=== PATIENT | female | born 1930 | race Caucasian/White ===

== ENCOUNTER 2018-09-21 18:01 | Emergency (ER) | payer MEDICARE, OTHER ==
[~2018-09-21] VITALS: Ht 160 cm; Wt 68.0 kg
--- NOTE | 2018-09-21 20:20 | Diagnostic Imaging Report ---
EXAMINATION: PA and lateral chest. INDICATION: Fall and confusion. COMPARISON: No comparison available. FINDINGS: There is marked enlargement of the cardiac silhouette. The pulmonary vascularity currently appears appropriate without evidence of congestive failure. There is no large effusion. There are chronic interstitial changes within the lungs with hyperinflation and flattened diaphragms. There is no pneumothorax. There are advanced atherosclerotic calcifications within the aortic arch. There are severe degenerative features present within the thoracic spine. There appears to be a lower thoracic compression deformity of uncertain age. IMPRESSION: 1. Severe enlargement of the cardiac silhouette without evidence of current congestive failure. 2. Chronic interstitial changes with air trapping and pulmonary hyperinflation. 3. Advanced atherosclerosis. 4. Advanced degenerative features throughout the thoracic spine with apparent lower thoracic compression deformity of uncertain age. Dictated by: Dictated on workstation # [id number]
--- NOTE | 2018-09-21 20:26 | Diagnostic Imaging Report ---
PROCEDURE: CT head and CT cervical spine without contrast. TECHNIQUE: Multiple contiguous axial images were obtained through the brain and cervical spine without the use of intravenous contrast. Sagittal and coronal reformations through the cervical spine were then performed. Auto Exposure Controls were utilized during the CT exam to meet ALARA standards for radiation dose reduction. INDICATION: Fall. Confusion. COMPARISON: No comparison available. FINDINGS: Age-related global volume loss is present. There are no CT findings of an acute intracranial abnormality. There is no evidence of intracranial hemorrhage. There is no mass effect or shift. There is no hydrocephalus. There are background chronic microvascular changes within the deep white matter but no territorial loss of hernandez-white differentiation to suggest acute ischemia by CT. Basilar cisterns are patent. The posterior fossa demonstrates no acute process. The mastoid air cells appear clear. No fluid levels within the paranasal sinuses. There is no calvarial fracture. Cervical spine demonstrates multilevel cervical degenerative disc disease and facet arthropathy, most advanced at C6-7. Craniocervical junction relationships are maintained. There is a normal relationship of the lateral masses of C1 and C2. The facets are normally aligned. There is no facet joint or disc space widening. The vertebral body heights appear maintained. There are no findings of an acute cervical spine fracture. There is no CT evidence of high-grade central canal stenosis. There appears to be mild narrowing of the central canal at C6-7. Lung apices demonstrate some right apical pleural-parenchymal scarring. There is no pneumothorax. There is no acute soft tissue abnormality evident within the neck. IMPRESSION: 1. Age-related global volume loss with background microvascular changes within the white matter. There are no CT findings of an acute intracranial abnormality or calvarial fracture. 2. Cervical degenerative disc disease and facet arthropathy, most advanced at C6-7. There are no findings of traumatic malalignment or acute cervical spine fracture. No high-grade canal stenosis evident. Dictated by: Dictated on workstation # [id number]
[2018-09-21 20:54] LABS: BASOPHILS % (AUTO) 0 % (0-10); EOSINOPHILS # (AUTO) 0.1 10^3/uL (0.0-0.3); EOSINOPHILS % (AUTO) 1 % (0-10); HEMATOCRIT 34 % (35-52); HEMOGLOBIN 12.3 G/DL (11.5-16.0); LYMPHOCYTES % (AUTO) 15 % (12-44); MEAN CORPUSCULAR HEMOGLOBIN 31 PG (25-34); MEAN CORPUSCULAR HGB CONC 32 G/DL (32-36); MEAN CORPUSCULAR VOLUME 95 FL (80-99); MEAN PLATELET VOLUME 11.2 FL (7.4-10.4); MONOCYTES # (AUTO) 0.5 X 10^3 (0.0-1.0); MONOCYTES % (AUTO) 8 % (0-12); NEUTROPHILS % (AUTO) 75 % (42-75); PLATELET COUNT 138 10^3/uL (130-400); RED CELL DISTRIBUTION WIDTH 13.8 % (10.0-14.5); WHITE BLOOD COUNT 6.7 10^3/uL (4.3-11.0)
[2018-09-21 20:58] LABS: BACTERIA,URINE LARGE /HPF; BILIRUBIN,URINE NEGATIVE (NEGATIVE); CLARITY,URINE CLOUDY; COLOR,URINE YELLOW; GLUCOSE, URINE (UA) NEGATIVE (NEGATIVE); KETONES,URINE NEGATIVE (NEGATIVE); LEUKOCYTE ESTERASE ,URINE NEGATIVE (NEGATIVE); NITRITE,URINE NEGATIVE (NEGATIVE); PH,URINE 7.5 (5-9); PROTEIN,URINE NEGATIVE (NEGATIVE); SQUAMOUS EPITHELIAL CELL,UR 0-2 /HPF; UROBILINOGEN,URINE 0.2 MG/DL (NORMAL); WBC,URINE 0-2 /HPF
[2018-09-21 21:17] LABS: CALCIUM 9.6 MG/DL (8.5-10.1); CREATININE SERUM 1.01 MG/DL (0.60-1.30); POTASSIUM 4.7 MMOL/L (3.6-5.0)
[2018-09-21 21:27] LABS: BAND NEUTROPHILS 1 %; BASOPHILS % (MANUAL) 0 %; EOSINOPHILS % (MANUAL) 1 %; LYMPHOCYTES % (MANUAL) 20 %; MONOCYTES % (MANUAL) 5 %; NEUTROPHILS % (MANUAL) 73 %; RBC MORPH NORMAL
[2018-09-21] MEDS ORDERED: CEPHALEXIN 250 MG (KEFLEX) CAP PO ONE (21:45)
[2018-09-21] MEDS ORDERED: ACETAMINOPHEN 500 MG TAB (TYLENOL) PO STA (21:45)
--- NOTE | 2018-09-21 21:49 | ED Trauma-Multisystem ---
General Chief Complaint: Trauma-Non Activation Stated Complaint: PT FELL AT HOME, SOB, RIB PAIN Nursing Triage Note: Pt arrived by private car with chief complaint of fall. Friend that brought pt stated she fell last night. Pt was not able to tell me what time, not able to tell me who the president is. She was able to identify where she was at. Pt stated it was december,. Pt's friend was asked if she has dementia or alzheimers and he stated sometimes she is confused. Pt does not know if she hit her head or if she takes blood thinners. Pt has abraision dime size to forehead and abraision of left posterior of thumb. Pt stated her chest hurt and she landed on her back. Source of Information: Patient, Family Exam Limitations: Other (Dementia ) History of Present Illness Date Seen by Provider: Sep 21, 2018 Time Seen by Provider: 19:30 Initial Comments This is a 87 yo f with some underlying dementia who presents for evaluation of fall. Pt presents with JEF who is at bedside and helps with history. Pt lives a lone. JEF states that they are working on moving her to an assisted living facility vs memory care unit vs with family. JEF checks on her daily. This afternoon she reported that she had fallen in the night. She states that she got up to the restroom and fell to the ground. Unable to describe any exact mechanism. Unsure of head injury. Denies any LOC or prolonged laying on the ground. Reported some rib pain to JEF who brought her to the ED. Indicates anterior diffuse rib pain with touch only. Unable to rank on scale of 1-10. Does not rate on a scale of 1-10. At baseline mental status per family at bedside. Ambulates with walker. Has baseline gait per family at bedside. Pt reports chronic left hip pain that is unchanged and has been ambulatory multiple times since fall. Allergies and Home Medications Allergies Coded Allergies: No Known Drug Allergies (Unverified , 09/21/18) Home Medications Cephalexin 500 Mg Tablet, 500 MG PO BID Prescribed by: MARIE ANDREWS on 09/21/18 1147 Patient Home Medication List Home Medication List Reviewed: Yes Review of Systems Review of Systems Constitutional: No no symptoms reported, No see HPI, No chills Eyes: No Symptoms Reported; Denies Blindness, Denies Blurred Vision, Denies Vision Changes Respiratory: No cough, No short of breath, No wheezing Cardiovascular: Denies Chest Pain, Denies Edema Gastrointestinal: No abdominal pain, No diarrhea, No nausea, No vomiting Musculoskeletal: joint pain; No muscle pain Skin: No rash Limited 2/2 Dementia All Other Systems Reviewed Negative Unless Noted: Yes (Negative excepted noted.) Past Ktbkrmw-Shxmsj-Mcejfd Hx Patient Social History Alcohol Use: Denies Use Recreational Drug Use: No Smoking Status: Never a Smoker 2nd Hand Smoke Exposure: No Recent Foreign Travel: No Contact w/Someone Who Travel: No Recent Infectious Disease Expo: No Recent Hopitalizations: No Physical Abuse: No Sexual Abuse: No Mistreated: No Fear: No Seasonal Allergies Seasonal Allergies: No Past Medical History Surgeries: Yes Tonsillectomy Respiratory: No Cardiac: Yes (SVT) Atrial Fibrillation Neurological: No Genitourinary: No Gastrointestinal: No Musculoskeletal: Yes (Osteoarthritis of left knee, contustion rt hip, right hip pain) Endocrine: No HEENT: No Cancer: No Psychosocial: No Integumentary: No Blood Disorders: No Physical Exam Vital Signs Vital Signs - First Documented Height, Weight, BMI Height: 5'3.00" Weight: 150lbs. 0oz. [id number]; BMI Method:Stated General Appearance: No Apparent Distress, Other (frail, appears stated age, sitting in wheelchair ) Head: No Evidence of Injury; No Contusions, No Ecchymosis, No Lacerations, No Swelling, No Tenderness Eyes: Bilateral Eye PERRL, Bilateral Eye EOMI Neck: Non Tender, Other (No midline spinal tenderness. Has some ?chronic decreased ROM but is not limited by pain. ) Cardiovascular: Regular Rate, Rhythm, No Edema, No Gallop, Normal Peripheral Pulses, Other (+1 pedal edema bilateral) Respiratory: Lungs Clear, Normal Breath Sounds, No Accessory Muscle Use, No Respiratory Distress Gastrointestinal: Normal Bowel Sounds, No Organomegaly Back: Other (No midline spinal tenderness in T through L spine. Mild tenderness to bilateral lateral chest wall. No overlying skin changes. No palpable crepitus or rib defects. ) Extremity: Normal Capillary Refill, Other (generalized weakness to bilateral LE that is 4/5 and equal to bilateral LE. Edema as above to ankles) Neurologic/Psychiatric: Alert, No Motor/Sensory Deficits, special forces specialist II-XII Norm as Tested, Other (Oriented to self/place, clear speech, conversant, pleasantly confused. ) Skin: Normal Color, Warm/Dry, Other (No areas of ecchymosis/bruising. ) Progress/Results/Core Measures Results/Orders Lab Results Laboratory Tests Test 09/21/18 20:16 09/21/18 20:32 Range/Units Urine Color YELLOW Urine Clarity CLOUDY Urine pH 7.5 5-9 Urine Specific [place] 1.015 L 1.016-1.022 Urine Protein NEGATIVE NEGATIVE Urine Glucose (UA) NEGATIVE NEGATIVE Urine Ketones NEGATIVE NEGATIVE Urine Nitrite NEGATIVE NEGATIVE Urine Bilirubin NEGATIVE NEGATIVE Urine Urobilinogen 0.2 NORMAL MG/DL Urine Leukocyte Esterase NEGATIVE NEGATIVE Urine RBC (Auto) NEGATIVE NEGATIVE Urine RBC NONE /HPF Urine WBC 0-2 /HPF Urine Squamous Epithelial Cells 0-2 /HPF Urine Crystals NONE /LPF Urine Bacteria LARGE H /HPF Urine Casts NONE /LPF Urine Mucus NEGATIVE /LPF Urine Culture Indicated YES White Blood Count 6.7 4.3-11.0 10^3/uL Red Blood Count 4.03 L 4.35-5.85 10^6/uL Hemoglobin 12.3 11.5-16.0 G/DL Hematocrit 34 L 35-52 % Mean Corpuscular Volume 95 80-99 FL Mean Corpuscular Hemoglobin 31 25-34 PG Mean Corpuscular Hemoglobin Concent 32 32-36 G/DL Red Cell Distribution Width 13.8 10.0-14.5 % Platelet Count 138 130-400 10^3/uL Mean Platelet Volume 11.2 H 7.4-10.4 FL Neutrophils (%) (Auto) 75 42-75 % Lymphocytes (%) (Auto) 15 12-44 % Monocytes (%) (Auto) 8 0-12 % Eosinophils (%) (Auto) 1 0-10 % Basophils (%) (Auto) 0 0-10 % Neutrophils # (Auto) 5.0 1.8-7.8 X 10^3 Lymphocytes # (Auto) 1.0 1.0-4.0 X 10^3 Monocytes # (Auto) 0.5 0.0-1.0 X 10^3 Eosinophils # (Auto) 0.1 0.0-0.3 10^3/uL Basophils # (Auto) 0.0 0.0-0.1 10^3/uL Neutrophils % (Manual) 73 % Lymphocytes % (Manual) 20 % Monocytes % (Manual) 5 % Eosinophils % (Manual) 1 % Basophils % (Manual) 0 % Band Neutrophils 1 % Blood Morphology Comment NORMAL Sodium Level 144 135-145 MMOL/L Potassium Level 4.7 3.6-5.0 MMOL/L Chloride Level 105 98-107 MMOL/L Carbon Dioxide Level 28 21-32 MMOL/L Anion Gap 11 5-14 MMOL/L Blood Urea Nitrogen 23 H 7-18 MG/DL Creatinine 1.01 0.60-1.30 MG/DL Estimat Glomerular Filtration Rate 52 BUN/Creatinine Ratio 23 Glucose Level 112 H 70-105 MG/DL Calcium Level 9.6 8.5-10.1 MG/DL Troponin T < 10 <=10 NG/L My Orders Orders - MARIE ANDREWS DO Basic Metabolic Panel (09/21/18 19:43) Cbc And Manual Diff (09/21/18 19:40) Ua Culture If Indicated (09/21/18 19:40) Chest Pa/Lat (2 View) (09/21/18 19:40) Troponin T (09/21/18 19:40) Ekg Tracing (09/21/18 19:40) Ct Head/Cervical Spine Wo (09/21/18 19:40) Urine Culture (09/21/18 20:16) Cephalexin Capsule (Keflex Capsule) (09/21/18 21:45) Acetaminophen Tablet (Tylenol Tablet) (09/21/18 21:45) Medications Given in ED Current Medications Medications Dose Ordered Sig/Von Route Start Time Stop Time Status Last Admin Dose Admin Cephalexin HCl 500 mg ONCE ONCE PO 09/21/18 21:45 09/21/18 21:46 DC 09/21/18 21:50 500 MG Vital Signs/I&O 09/21/18 09/21/18 09/21/18 19:20 19:20 21:57 Temp 99.4 99.4 99.4 Pulse 83 83 83 Resp 22 22 22 B/P (MAP) 170/85 (113) 170/85 (113) 170/85 (113) Pulse Ox 97 97 97 O2 Delivery Room Air Room Air Room Air Blood Pressure Mean: 113 Progress Progress Note : Time: 21:47 Progress Note Urine with bacteruria. Unable to access if pt is symptomatic 2/2 dementia. Given fall, will treat. JEF at bedside notes that pt has unsteady gait, is a significant fall risk. Family plans to move to facility vs into family home as she currently lives alone. Head CT/C-spine with no acute findings. CXR with no obvious rib fractures. Discussed limited capabilities of seeing rib fractures. Discussed cardiomegaly on CXR. Pt likely has longstanding CHF but is not acutely decompensated. Discussed need to follow up with primary care physician for further evaluation/discussion on treatment goals/management/evaluation. Will treat urine with Keflex. First dose given in ED. Advised close monitoring. Advised pain control with Tylenol. Return precautions given. Family verbalized understanding. All questions answered. Initial ECG Impression Date: Sep 21, 2018 Initial ECG Impression Time: 20:16 Comment A-fib. HR 85, No ST segment changes. Diagnostic Imaging Comments CT Head/C-spine 1) Global volume loss. No acute intracranial changes 2) Diffuse DJD. No acute fracture CXR IMPRESSION: 1. Severe enlargement of the cardiac silhouette without evidence of current congestive failure. 2. Chronic interstitial changes with air trapping and pulmonary hyperinflation. 3. Advanced atherosclerosis. 4. Advanced degenerative features throughout the thoracic spine with apparent lower thoracic compression deformity of uncertain age. Dictated by: Reviewed: [facility] Imp[facility] Primary Impression: Chest wall contusion Additional Impressions: Closed head injury Urinary tract infection Disposition: 01 HOME, SELF-CARE Condition: Stable Departure-Patient Inst. Decision time for Depature: 21:48 Referrals: SAMIRA COATES MD (PCP) Primary Care Physician Patient Instructions: Minor Head Injury (DC), Asymptomatic Bacteriuria, Concussion, Adult (DC), Contusion (DC) Add. Discharge Instructions: Please read the attached handouts. Please follow up with her primary care physician in the next 1-2 days. Given Tylenol 1000mg every 6-8 hrs for pain. All discharge instructions reviewed with patient and/or family. Voiced understanding. Scripts Cephalexin (Cephalexin) 500 Mg Tablet 500 MG PO BID for 7 Days, #14 TAB 0 Refills Prov: MARIE ANDREWS DO 09/21/18 MARIE ANDREWS DO Sep 21, 2018 21:49
[2018-09-21] MEDS ORDERED: CEPH500T PO (21:51)
[2018-09-21 21:57] VITALS: BP 170/85
== END 2018-09-21 21:54 | disposition home or self-care (01) ==
LOC: ER FS 18:03
DX: S09.90XA Unspecified injury of head, initial encounter (principal); S20.219A Contusion of unspecified front wall of thorax, initial encounter; N39.0 Urinary tract infection, site not specified; I48.91 Unspecified atrial fibrillation; F03.90 Unspecified dementia, unspecified severity, without behavioral disturbance, psychotic disturbance, mood disturbance, and anxiety; M17.12 Unilateral primary osteoarthritis, left knee; Z90.89 Acquired absence of other organs
CPT/HCPCS: 36415; 70450; 71046; 72125; 80048; 81000; 84484; 85007; 85027; 87077; 87088; 93005

== ENCOUNTER 2021-03-18 23:25 | Observation (INO) | payer MEDICARE ==
[~2021-03-18] VITALS: Ht 154 cm; Wt 57.2 kg
[~2021-03-18 23:25] MED LIST: CEPH500T PO
--- NOTE | 2021-03-18 23:33 | ED Fall/Injury ---
General Stated Complaint: FALL History of Present Illness Date Seen by Provider: Mar 18, 2021 Time Seen by Provider: 23:28 Initial Comments 89-year-old female presents with some generalized weakness and falls. Patient is brought in by EMS after her third fall today. Son reports that earlier today this morning that they found her lying on the floor. They are unsure what time she try to get a bed when she fell. She then try to get out of again later in the day fell again and then went back to sleep. Reports this evening that when she got up out of bed she can made it close toward the bathroom and then fell again. He reports that normally she can get up and ambulate with a walker. Reports that she is kind of quiet because she is very hard of hearing and does not always answer much. She denies any injury. She did not provide a lot of information but denied any pain. Allergies and Home Medications Allergies Coded Allergies: No Known Drug Allergies (Unverified , 09/21/18) Patient Home Medication List Home Medication List Reviewed: Yes Cephalexin (Cephalexin) 500 Mg Tablet, 500 MG PO BID Prescribed by: MARIE ANDREWS on 09/21/182150 Review of Systems Review of Systems Constitutional: no symptoms reported Eyes: No Symptoms Reported Physical Exam Vital Signs Vital Signs - First Documented 03/18/21 23:51 Temp 36.7 Pulse 95 Resp 12 B/P (MAP) 136/71 Pulse Ox 99 O2 Delivery Room Air Capillary Refill : Height, Weight, BMI Height: '" Weight: lbs. oz. kg; BMI Method: General Appearance: other (frail ) Neck: full range of motion, supple Cardiovascular: normal peripheral pulses, regular rate, rhythm Respiratory: lungs clear, normal breath sounds Gastrointestinal: non tender, soft Extremities: non-tender, pedal edema Neurologic/Psychiatric: alert, other (difficulty hearing, generalized weakness, seems to have difficulty comprehending questions but very hard to tell with hearing issues) Skin: normal color, warm/dry Progress/Results/Core Measures Results/Orders Lab Results Laboratory Tests Test 03/18/21 23:32 03/18/21 23:38 03/18/21 23:49 Range/Units White Blood Count 9.4 4.3-11.0 10^3/uL Red Blood Count 3.67 L 3.80-5.11 10^6/uL Hemoglobin 11.5 11.5-16.0 g/dL Hematocrit 34 L 35-52 % Mean Corpuscular Volume 92 80-99 fL Mean Corpuscular Hemoglobin 31 25-34 pg Mean Corpuscular Hemoglobin Concent 34 32-36 g/dL Red Cell Distribution Width 13.1 10.0-14.5 % Platelet Count 109 L 130-400 10^3/uL Mean Platelet Volume 11.3 9.0-12.2 fL Immature Granulocyte % (Auto) 0 % Neutrophils (%) (Auto) 76 H 42-75 % Lymphocytes (%) (Auto) 15 12-44 % Monocytes (%) (Auto) 9 0-12 % Eosinophils (%) (Auto) 0 0-10 % Basophils (%) (Auto) 0 0-10 % Neutrophils # (Auto) 7.1 1.8-7.8 X 10^3 Lymphocytes # (Auto) 1.4 1.0-4.0 X 10^3 Monocytes # (Auto) 0.8 0.0-1.0 X 10^3 Eosinophils # (Auto) 0.0 0.0-0.3 10^3/uL Basophils # (Auto) 0.0 0.0-0.1 10^3/uL Immature Granulocyte # (Auto) 0.0 0.0-0.1 10^3/uL Percent Immature Platelet Fraction 4.5 0.0-7.6 % Sodium Level 138 135-145 MMOL/L Potassium Level 3.7 3.6-5.0 MMOL/L Chloride Level 105 98-107 MMOL/L Carbon Dioxide Level 19 L 21-32 MMOL/L Anion Gap 14 5-14 MMOL/L Blood Urea Nitrogen 36 H 7-18 MG/DL Creatinine 1.36 H 0.60-1.30 MG/DL Estimat Glomerular Filtration Rate 37 BUN/Creatinine Ratio 26 Glucose Level 74 70-105 MG/DL Calcium Level 9.3 8.5-10.1 MG/DL Corrected Calcium 9.5 8.5-10.1 MG/DL Total Bilirubin 0.6 0.1-1.0 MG/DL Aspartate Amino Transf (AST/SGOT) 34 5-34 U/L Alanine Aminotransferase (ALT/SGPT) 17 0-55 U/L Alkaline Phosphatase 130 40-136 U/L Troponin I 0.30 <0.30 NG/ML C-Reactive Protein 4.31 H <0.50 MG/DL Total Protein 6.4 6.4-8.2 GM/DL Albumin 3.8 3.2-4.5 GM/DL Lactic Acid Level 2.41 *H 0.50-2.00 MMOL/L Urine Color YELLOW Urine Clarity CLEAR Urine pH 5.5 5-9 Urine Specific [place] 1.025 H 1.016-1.022 Urine Protein NEGATIVE NEGATIVE Urine Glucose (UA) NEGATIVE NEGATIVE Urine Ketones NEGATIVE NEGATIVE Urine Nitrite NEGATIVE NEGATIVE Urine Bilirubin NEGATIVE NEGATIVE Urine Urobilinogen 0.2 < = 1.0 MG/DL Urine Leukocyte Esterase NEGATIVE NEGATIVE Urine RBC (Auto) TRACE-I H NEGATIVE Urine RBC 0-2 /HPF Urine WBC 0-2 /HPF Urine Squamous Epithelial Cells 0-2 /HPF Urine Crystals NONE /LPF Urine Bacteria MODERATE H /HPF Urine Casts NONE /LPF Urine Mucus SMALL H /LPF Urine Culture Indicated YES My Orders Orders - DAVIS,ELOISA L DO Cbc With Automated Diff (03/18/21 23:34) Comprehensive Metabolic Panel (03/18/21 23:34) Lactic Acid Analyzer (03/18/21 23:34) Ua Culture If Indicated (03/18/21 23:34) Crp Fs (03/18/21 23:34) Troponin I Fs (03/18/21 23:34) Chest 1 View Ap/Pa Only (03/18/21 23:34) Ct Head Wo (03/18/21 23:34) Catheter(Urinary) Insert & Ass 03,15 (03/18/21 23:38) Urine Culture (03/18/21 23:49) Ceftriaxone (Rocephin) (03/19/21 00:30) Medications Given in ED Current Medications Medications Dose Ordered Sig/Von Route Start Time Stop Time Status Last Admin Dose Admin Ceftriaxone Sodium 1000 mg/ Sterile Water 10 ml @ 200 mls/hr ONCE ONCE IV 03/19/21 00:30 03/19/21 00:32 DC 03/19/21 00:27 200 MLS/HR Vital Signs/I&O 03/18/21 03/18/21 23:51 23:52 Temp 36.7 36.7 Pulse 95 95 Resp 12 12 B/P (MAP) 136/71 136/71 (92) Pulse Ox 99 99 O2 Delivery Room Air Room Air Progress Progress Note : Progress Note Patient with some generalized weakness and debility. She does have a questionable UTI with elevated BUN and creatinine elevated lactic acid. Patient given IV fluids in the ER along with Rocephin. I discussed with Dr. Mccallum who accepted patient for admission to [facility]. I do suspect that much of her issue is just generalized aging changes. Patient seems to have some difficulty understanding but this is difficult to discern since she has very poor hearing. Diagnostic Imaging Diagonstic Imaging: CT Plain Films/CT/US/NM/MRI: head Comments no acute findings Reviewed: Reviewed [place] Study Diagonstic Imaging: Xray Plain Films/CT/US/NM/MRI: chest Comments no acute findings Reviewed: Reviewed by Me Focused Exam Lactate Level 03/18/21 23:38: Lactic Acid Level 2.41*H Lactic Acid Level Laboratory Tests Test 03/18/21 23:38 Lactic Acid Level 2.41 MMOL/L (0.50-2.00) *H Departure Communication (Admissions) Time/Spoke to Admitting Phy: 00:30 Impression Primary Impression: Debility Additional Impression: Cystitis Disposition: 30 STILL A PATIENT Condition: Stable Admissions Decision to Admit Reason: Admit from ER (General) Decision to Admit/Date: Mar 19, 2021 Time/Decision to Admit Time: 00:30 ELOISA DAVIS DO Mar 18, 2021 23:33
[2021-03-18 23:45] LABS: BASOPHILS % (AUTO) 0 % (0-10); EOSINOPHILS % (AUTO) 0 % (0-10); HEMATOCRIT 34 % (35-52); HEMOGLOBIN 11.5 g/dL (11.5-16.0); LYMPHOCYTES # (AUTO) 1.4 X 10^3 (1.0-4.0); LYMPHOCYTES % (AUTO) 15 % (12-44); MEAN CORPUSCULAR HEMOGLOBIN 31 pg (25-34); MEAN CORPUSCULAR HGB CONC 34 g/dL (32-36); MEAN CORPUSCULAR VOLUME 92 fL (80-99); MEAN PLATELET VOLUME 11.3 fL (9.0-12.2); MONOCYTES # (AUTO) 0.8 X 10^3 (0.0-1.0); MONOCYTES % (AUTO) 9 % (0-12); NEUTROPHILS # (AUTO) 7.1 X 10^3 (1.8-7.8); NEUTROPHILS % (AUTO) 76 % (42-75); PLATELET COUNT 109 10^3/uL (130-400); WHITE BLOOD COUNT 9.4 10^3/uL (4.3-11.0)
[2021-03-19 00:02] LABS: CLARITY,URINE CLEAR; COLOR,URINE YELLOW; GLUCOSE, URINE (UA) NEGATIVE (NEGATIVE); PH,URINE 5.5 (5-9); PROTEIN,URINE NEGATIVE (NEGATIVE)
[2021-03-19 00:03] LABS: BACTERIA,URINE MODERATE /HPF; BILIRUBIN,URINE NEGATIVE (NEGATIVE); KETONES,URINE NEGATIVE (NEGATIVE); LEUKOCYTE ESTERASE ,URINE NEGATIVE (NEGATIVE); NITRITE,URINE NEGATIVE (NEGATIVE); RBC,URINE 0-2 /HPF; SQUAMOUS EPITHELIAL CELL,UR 0-2 /HPF; WBC,URINE 0-2 /HPF
[2021-03-19 00:07] LABS: CREATININE SERUM 1.36 MG/DL (0.60-1.30); POTASSIUM 3.7 MMOL/L (3.6-5.0)
[2021-03-19 00:08] LABS: ALBUMIN 3.8 GM/DL (3.2-4.5); BILIRUBIN,TOTAL 0.6 MG/DL (0.1-1.0); CALCIUM 9.3 MG/DL (8.5-10.1); TOTAL PROTEIN 6.4 GM/DL (6.4-8.2)
[2021-03-19] MEDS ORDERED: cefTRIAXone 1,000 MG in WATER (STERILE) FOR INJECTION 10 ML IV ONE (00:30)
[2021-03-19] MEDS ORDERED: NS IV 1000 ML 1,000 ML ONE (02:14)
[2021-03-19] MEDS: NS IV 1000 ML 1,000 ML IV SCH ×3 (03:08→21:15)
[2021-03-19 04:00] VITALS: BP 140/67
[2021-03-19] MEDS ORDERED: CATHETER FLUSH 10 ML SYR IV PRN (07:00)
--- NOTE | 2021-03-19 07:23 | Diagnostic Imaging Report ---
PROCEDURE: CT head without contrast. TECHNIQUE: Multiple contiguous axial images were obtained through the brain without the use of intravenous contrast. Auto Exposure Controls were utilized during the CT exam to meet ALARA standards for radiation dose reduction. INDICATION: Multiple falls. Increased confusion. Comparison is made with a CT from 09/21/2018. The ventricles are normal in size, shape and position. There is age-related atrophy with no acute parenchymal hemorrhage, edema or mass. There is no extra-axial mass or hemorrhage. There is no skull fracture. IMPRESSION: Atrophy. No acute abnormality is seen with no change from 09/21/2018. Dictated by: Dictated on workstation # [id number]
--- NOTE | 2021-03-19 07:23 | Diagnostic Imaging Report ---
INDICATION: Fall. Confusion. FINDINGS: Upright portable chest shows normal heart size and vascularity. There is a vague 1 cm parenchymal density seen in the right upper lobe seen between the posterior aspect of the right 5th and 6th ribs. There is appearance of a calcified granuloma in the right lower lobe. Left lung is clear. There is no effusion or pneumothorax. There is no acute bony abnormality. IMPRESSION: Possible right upper lung nodule. No acute abnormality is seen. Follow-up PA and lateral chest may be helpful. The heart size has increased since a prior study from 09/21/2018. Dictated by: Dictated on workstation # [id number]
[2021-03-19 08:00] VITALS: BP 147/46
--- NOTE | 2021-03-19 08:25 | Physical Therapy Evaluation ---
PT Evaluation-General Medical Diagnosis Admission Date Mar 19, 2021 at 01:58 Medical Diagnosis: generalized weakness and falls Onset Date: Mar 18, 2021 Therapy Diagnosis Therapy Diagnosis: Gait deficit, strength deficit Height/Weight Height (Feet): 5 Height (Inches): 3.00 Weight (Pounds): 150 Weight (Ounces): 0 Precautions Precautions/Isolations: Fall Prevention, Standard Precautions, Pressure Ulcer Referral Reason for Referral: Evaluation/Treatment Social History Home: [facility] Current Living Status: Children Patient very confused and unreliable historian. Prior Prior Level of Function SCALE: Activities may be completed with or without assistive devices. 1-Lkeesvtjcd-walenzi completes the activity by him/herself with no assistance from a helper. 5-Set-up or Clean-up Assistance-helper sets up or cleans up; patient completes activity. [place] assists only prior to or following the activity. 4-Supervision or Touching Assistance-helper provides verbal cues and/or touching/steadying and/or contact guard assistance as patient completes activity. Assistance may be provided throughout the activity or intermittently. 3-Partial/Moderate Assistance-helper does LESS THAN HALF the effort. [place] lifts, holds or supports trunk or limbs, but provides less than half the effort. 2-Substantial/Maximal Assistance-helper does MORE THAN HALF the effort. [place] lifts or holds trunk or limbs and provides more than half the effort. 1-Cnnguowyc-yervpp does ALL the effort. Patient does none of the effort to compl ete the activity. Or, the assistance of 2 or more helpers is required for the patient to complete the activity. If activity was not attempted, code reason: 7-Patient Refused. 9-Not Applicable-not attempted and the patient did not perform the activity before the current illness, exacerbation or injury. 10-Not Attempted due to Environmental Limitations-(lack of equipment, weather restraints, etc.). 88-Not Attempted due to Medical Conditions or Safety Concerns. Bed Mobility: 6 Transfers (B,C,W/C): 6 Gait: 6 Stairs: 6 Indoor Mobility (Ambulation): Independent Stairs: Independent Prior Device Use: Crutches PT Evaluation-Current Subjective Patient very confused, unable to report where she is currently. States she lives in [facility], but unable to obtain any other specific subjective information. Rates pain at 0/10 currently. Objective Patient Orientation: Person ROM/Strength ROM Lower Extremities WFLs bilaterally all planes Strength Lower Extremities 3+/5 grossly bilateral LEs Sensory Vision: Wears Glasses Hearing: Impaired (Significantly impaired) Sensation Right Lower Extremit: Impaired Sensation Left Lower Extremity: Impaired Sensation Lower Extremities Patient reports loss of sensation with light touch throughout each dermatome bilaterally Transfers Roll Left to Right (QC): 3 Sit to Lying (QC): 3 Lying to Sitting/Side of Bed(Q: 3 Sit to Stand (QC): 3 Chair/Gwn-dn-Bafdt Xfer(QC): 3 Gait Does the Patient Walk?: Yes Mode of Locomotion: Walk Anticipated Mode of Locomotion: Walk Walk 10 feet (QC): 3 Gait Assistive Device: FWW Balance Sitting Static: Good Sitting Dynamic: Fair Standing Static: Fair Standing Dynamic: Poor Assessment/Needs Patient lying supine in bed upon PT arrival, agreeable to treatment. Patient very confused, only able to recall her name. Patient tolerated treatment well. Patient performs all observed bed mobility and transfers with min A and verbal cues for safety and performance. Patient is impulsive at times and does not wait for directions. Patient ambulates 30 feet with FWW, with min A and verbal cues for posture, safety, progression and control of FWW. Patient tends to maintain a forward trunk posture with narrow MICKI and shortened stride length bilaterally. Patient in chair post treatment with all needs met, nursing notified, call light in hand, chair alarm activated. Rehab Potential: Fair Post Rehab Potential-Barriers: Cognition Equipment Needs Unsure as patient is unable to recall which devices she has at home. PT Trouble Locator Test Desk Goals Shelter Goals PT Trouble Locator Test Desk Goals Time Frame: Apr 02, 2021 Roll Left & Right (QC): 5 Sit to Lying (QC): 5 Lying-Sitting on Side/Bed(QC): 5 Sit to Stand (QC): 5 Chair/Uwf-ix-Jgaeu Xfer(QC): 5 Toilet Transfer (QC): 5 Does the Patient Walk: Yes Walk 10 feet (QC): 5 Walk 50ft with 2 Turns (QC): 5 Walk 150 ft (QC): 5 1 Step (curb) (QC): 4 4 Steps (QC): 4 12 Steps (QC): 4 PT Plan Problem List Problem List: Activity Tolerance, Functional Strength, Safety, Balance, Gait, Transfer, Bed Mobility, ROM Treatment/Plan Treatment Plan: Continue Plan of Care Treatment Plan: Bed Mobility, Education, Functional Activity Be, Functional Strength, Group Therapy, Gait, Safety, Therapeutic Exercise, Transfers Treatment Duration: May 28, 2021 Frequency: 6 times per week Estimated Hrs Per Day: .5 hour per day Safety Risks/Education Patient Education: Gait Training, Transfer Techniques Teaching Recipient: Patient Teaching Methods: Demonstration, Discussion Response to Teaching: Verbalize Understanding, Reinforcement Needed Discharge Recommendations Target Placement Home with son if he is able to provide 24 hour care due to patients impulsiveness. Time/GCodes Time In: 0816 Time Out: 0840 Total Billed Treatment Time: 24 Total Billed Treatment Visit, lew Foss JOHN A PT Mar 19, 2021 08:25
[2021-03-19 09:59] LABS: HEMATOCRIT 33 % (35-52); HEMOGLOBIN 10.9 g/dL (11.5-16.0); MEAN CORPUSCULAR HEMOGLOBIN 31 pg (25-34); MEAN CORPUSCULAR HGB CONC 33 g/dL (32-36); MEAN CORPUSCULAR VOLUME 96 fL (80-99); MEAN PLATELET VOLUME 10.6 fL (9.0-12.2); PLATELET COUNT 98 10^3/uL (130-400); WHITE BLOOD COUNT 6.2 10^3/uL (4.3-11.0)
[2021-03-19 10:18] LABS: CALCIUM 8.6 MG/DL (8.5-10.1); CREATININE SERUM 1.13 MG/DL (0.60-1.30); POTASSIUM 3.7 MMOL/L (3.6-5.0)
--- NOTE | 2021-03-19 10:26 | History & Physical-Hospitalist ---
History of Present Illness HPI/Chief Complaint Patient is an 89-year-old female who presented to the emergency department due to recurrent falls and weakness. She is unable to tell me all about her falls and is quite hard of hearing so history is somewhat limited. There is no family at bedside. Most history is obtained from the records. Her son reported to the ER that he found her lying on the floor and was unsure how long she had been down for. I then fell 2 more times, one on the way to the bathroom. They decided to bring her in at that point as she is normally able to ambulate with her walker. She denies any pain and is currently eating breakfast. Source: patient Date Seen 03/19/21 Time Seen by a Provider: 10:19 Attending Physician Robert Mccallum MD PCP Kodi Gimenez MD Referring Physician Date of Admission Mar 19, 2021 at 01:58 Home Medications & Allergies Home Medications Reviewed patient Home Medication Reconciliation performed by pharmacy medication reconciliations oil field technician and/or nursing. Patients Allergies have been reviewed. Allergies Allergies Coded Allergies No Known Drug Allergies (Unverified09/21/18) Past Sqnnlvm-Eksdpm-Ocxgnh Hx Patient Social History Employed/Student: retired Tobacco Use?: No Smoking Status: Never a Smoker Use of E-Cig and/or Vaping dev: No Substance use?: No Alcohol Use?: No Pt feels they are or have been: No Immunizations Up To Date Second COVID19 Vaccination Remi: AUGUST 2020 Tetanus Booster (TDap): More Than 5 Years Seasonal Allergies Seasonal Allergies: No Current Status status: No status: No Advance Directives: No Communicates: Verbally Primary Language: Occitan Preferred Spoken Language: Occitan Is interpretation needed?: No Sensory deficits: Vision impairment, Hearing impairment Implanted or Applied Medical D: None Past Medical History Surgeries: Tonsillectomy Atrial Fibrillation Blood Disorders: No Review of Systems Constitutional: see HPI Physical Exam Physical Exam Vital Signs Vital Signs - First Documented 03/18/21 23:51 Temp 36.7 Pulse 95 Resp 12 B/P (MAP) 136/71 Pulse Ox 99 O2 Delivery Room Air Capillary Refill : Less Than 3 Seconds Height, Weight, BMI Height: 5'3.00" Weight: 150lbs. 0oz. 68.823195ut; 22.22 BMI Method:Stated General Appearance: No Apparent Distress, Chronically ill, Thin HEENT: PERRL/EOMI, Moist Mucous Membranes; No Scleral Icterus (L), No Scleral Icterus (R) Neck: Normal Inspection, Supple Respiratory: Lungs Clear, No Accessory Muscle Use, No Respiratory Distress Cardiovascular: Regular Rate, Rhythm, No JVD, Systolic Murmur Gastrointestinal: Normal Bowel Sounds, Non Tender, Soft Extremity: No Calf Tenderness, No Pedal Edema Neurologic/Psychiatric: Alert, Normal Mood/Affect, Other (appears oriented but somewhat limited exam as she is very hard of hearing and answered some questions incorrectly though this seemed to be due to not hearing the question) Skin: Normal Color, Warm/Dry Results Results/Procedures Labs Laboratory Tests 03/18/21 23:32 03/19/21 09:50 Patient resulted labs reviewed. Imaging: Reviewed Imaging Report [facility] [place], [place] NAME: BRUCE LAU Kandu REC#: [id number] PT STATUS: ADM IN : 1930 PHYSICIAN: ELOISA DAVIS DO ADMIT DATE: 03/19/21 Signed Date of Exam:03/18/21 CHEST 1 VIEW AP/PA ONLY INDICATION: Fall. Confusion. FINDINGS: Upright portable chest shows normal heart size and vascularity. There is a vague 1 cm parenchymal density seen in the right upper lobe seen between the posterior aspect of the right 5th and 6th ribs. There is appearance of a calcified granuloma in the right lower lobe. Left lung is clear. There is no effusion or pneumothorax. There is no acute bony abnormality. IMPRESSION: Possible right upper lung nodule. No acute abnormality is seen. Follow-up PA and lateral chest may be helpful. The heart size has increased since a prior study from 09/21/2018. Dictated by: Dictated on workstation # [id number] Dict: 03/19/21719 Trans: 03/19/21817 [id number] Interpreted by: MAGUI BAUER MD Electronically signed by: MAGUI BAUER MD 03/19/21817 [facility] [employer] [employer] [facility]. [place], [place] NAME: SIDBRUCE Kandu REC#: [id number] PT STATUS: ADM IN : 1930 PHYSICIAN: ELOISA DAVIS DO ADMIT DATE: 03/19/21 Signed Date of Exam:03/18/21 CT HEAD WO PROCEDURE: CT head without contrast. TECHNIQUE: Multiple contiguous axial images were obtained through the brain without the use of intravenous contrast. Auto Exposure Controls were utilized during the CT exam to meet ALARA standards for radiation dose reduction. INDICATION: Multiple falls. Increased confusion. Comparison is made with a CT from 09/21/2018. The ventricles are normal in size, shape and position. There is age-related atrophy with no acute parenchymal hemorrhage, edema or mass. There is no extra-axial mass or hemorrhage. There is no skull fracture. IMPRESSION: Atrophy. No acute abnormality is seen with no change from 09/21/2018. Dictated by: Dictated on workstation # [id number] Dict: 03/19/21718 Trans: 03/19/21817 [facility] [id number] Interpreted by: MAGUI BAUER MD Electronically signed by: MAGUI BAUER MD 03/19/21817 Assessment/Plan Admission Diagnosis UTI Admission Status: Observation Reason for Inpatient Admission: see below Assessment and Plan UTI Continue IV abx Await cultures, previously has grown pansensitive e coli Falls Debility CT head negative PT/OT IRF eval HTN Appears to fill verapamil Diagnosis/Problems Diagnosis/Problems (1) UTI (urinary tract infection) Status: Acute Qualifiers: Urinary tract infection type: acute cystitis Hematuria presence: without hematuria Qualified Codes: N30.00 - Acute cystitis without hematuria (2) Debility Status: Acute RADHIKA SIEGEL MD Mar 19, 2021 10:26
--- NOTE | 2021-03-19 10:36 | Occupational Therapy Eval ---
OT Evaluation-General/PLF Medical Diagnosis Admission Date Mar 19, 2021 at 01:58 Medical Diagnosis: generalized weakness and falls Onset Date: Mar 18, 2021 Therapy Diagnosis Therapy Diagnosis: Impaired balance, weakness, confusion Height/Weight Height (Feet): 5 Height (Inches): 3.00 Weight (Pounds): 150 Weight (Ounces): 0 Precautions Precautions/Isolations: Fall Prevention, Standard Precautions Safety Interventions: Bed Exit Alarm Referral Referral Reason: Evaluation/Treatment Medical History Current History Pt presents to hospital following increased weakness and multiple falls within last 24 hours. She is alert, oriented x0. Unable to state name. Per son, pt lives alone but has a son in law that lives next door and checks on her frequently. She was indep with adls. She eats simple meals and was able to use the microwave. Her son reports that she nows has a reverberatory skimmer 3x/week. She was using a walker prior to admission. Her son states that the plan is to move to an assisted living facility in [place] where his brother resides. Social History Home: Single Level Current Living Status: Alone ADL-Prior Level of Function SCALE: Activities may be completed with or without assistive devices. 2-Tgdwzulgyr-ywiehjv completes the activity by him/herself with no assistance from a helper. 5-Set-up or Clean-up Assistance-helper sets up or cleans up; patient completes activity. [place] assists only prior to or following the activity. 4-Supervision or Touching Assistance-helper provides verbal cues and/or touching/steadying and/or contact guard assistance as patient completes activity. Assistance may be provided throughout the activity or intermittently. 3-Partial/Moderate Assistance-helper does LESS THAN HALF the effort. [place] lifts, holds or supports trunk or limbs, but provides less than half the effort. 2-Substantial/Maximal Assistance-helper does MORE THAN HALF the effort. [place] lifts or holds trunk or limbs and provides more than half the effort. 5-Dgvxeabzh-nzhvuu does ALL the effort. Patient does none of the effort to complete the activity. Or, the assistance of 2 or more helpers is required for the patient to complete the activity. If activity was not attempted, code reason: 7-Patient Refused. 9-Not Applicable-not attempted and the patient did not perform the activity before the current illness, exacerbation or injury. 10-Not Attempted due to Environmental Limitations-(lack of equipment, weather restraints, etc.). 88-Not Attempted due to Medical Conditions or Safety Concerns. Self Care: Independent Functional Cognition: Unknown DME/Equipment: Bath Bench, Grab Bars, Tub/Shower OT Current Status Subjective Pt pleasantly confused. Unable to state name. Very [place] and requires simplification and repetition of commands. Reports no pain. "i've actually never had any pain throughout this entire thing." Appearance Pt returned to sitting in chair, alarm set. All needs within reach. Son in room. RN notified. Mental Status/Objective Patient Orientation: Confused Attachments: Lujan Catheter, IV Current Upper Extremity ROM WFL Upper Extremity Strength Unable to follow directions, appears at least 3/5 grossly. Fait+ property analyst strength. ADL-Treatment On/Off Footwear (QC): 4 Toileting Hygiene (QC): 3 (per clinical judgement) Pt sitting in chair at OT arrival. Able to follow simple commands, repetition needed due to being very [place]. She don/doffed donna socks with use of cross over method. No difficulty exhibited. She stood from chair with cga-min A. Mild unsteadiness observed but no significant LOB. Cues needed for safety/management of walker. Pt often looking at therapist for direction on next step. She ambulated short distance within room, min a. Pt currently with Lujan catheter thus toileting not performed. Pt likely would require steading assist for clothing management at this time. Anticipate pt may do better in more familiar environment. Education OT Patient Education: Correct positioning, Modified ADL techniques, Progress toward Goal/Update tx plan, Purpose of tx/functional activities, Reviewed precautions, Safety issues, Transfer techniques Teaching Recipient: Patient Teaching Methods: Demonstration, Discussion Response to Teaching: Return Demonstration, Reinforcement Needed OT Residential Goals Residential Goals Time Frame: Mar 29, 2021 Eating (QC): 6 Oral Hygiene (QC): 4 Toileting Hygiene (QC): 4 Lower Body Dressing (QC): 4 On/Off Footwear (QC): 5 1=Demonstrate adherence to instructed precautions during ADL tasks. 2=Patient will verbalize/demonstrate understanding of assistive devices/modifications for ADL. 3=Patient will improve strength/tolerance for activity to enable patient to perform ADL's. OT Education/Plan Problem List/Assessment Assessment: Decreased Activ Tolerance, Decreased Safety Aware, Decreased UE Strength, Impaired Cognition, Impaired Funct Balance, Impaired I ADL's, Impaired Self-Care Skills Discharge Recommendations Plan/Recommendations: Continue POC Therapy Discharge Recommendati: 24 Hour Supervision, Assisted Living Treatment Plan/Plan of Care Treatment,Training & Education: Yes Patient would benefit from OT for education, treatment and training to promote independence in ADL's, mobility, safety and/or upper extremity function for ADL's. Plan of Care: ADL Retraining, Caregiver Training, Functional Mobility, UE Funct Exercise/Act Treatment Duration: Mar 29, 2021 Frequency: 5 times per week Estimated Hrs Per Day: .25 hour per day Rehab Potential: Fair Time/GCodes Start Time: 10:06 Stop Time: 10:29 Total Time Billed (hr/min): 23 Billed Treatment Time 1 visit, EVM (10 min) ADL (13 min) Krystyna Phelps OT Mar 19, 2021 10:36
[2021-03-19] MEDS ORDERED: VERA360C2 PO (11:14)
[2021-03-19 12:00] VITALS: BP 140/87
[2021-03-19 15:25] VITALS: BP 150/75
[2021-03-19 19:42] VITALS: BP 154/67
[2021-03-19] MEDS: cefTRIAXone 1,000 MG/SWFI 10 ML IV PUSH IV SCH ×2 (22:18)
[2021-03-19 23:29] VITALS: BP 157/75
[2021-03-20 03:23] VITALS: BP 127/80
[2021-03-20] MEDS: NS IV 1000 ML 1,000 ML IV SCH ×2 (07:19→16:53)
[2021-03-20 07:34] VITALS: BP 158/72
--- NOTE | 2021-03-20 11:15 | Occupational Ther Daily Note ---
OT Current Status-Daily Note Subjective Pt frequently held stomach and reports discomfort when moving. Unable to comprehend/express if she has had a BM. RN informed. Appearance Pt left sitting in chair, all needs within reach. Alarm set, RN notified. Mental Status/Objective Patient Orientation: Confused ADL-Treatment Therapy Code Descriptions/Definitions Functional Gregory Measure: 0=Not Assessed/NA 4=Minimal Assistance 1=Total Assistance 5=Supervision or Setup 2=Maximal Assistance 6=Modified Gregory 3=Moderate Assistance 7=Complete IndependenceSCALE: Activities may be completed with or without assistive devices. 0-Lykbqlovkn-kwzmwpv completes the activity by him/herself with no assistance from a helper. 5-Set-up or Clean-up Assistance-helper sets up or cleans up; patient completes activity. [place] assists only prior to or following the activity. 4-Supervision or Touching Assistance-helper provides verbal cues and/or touc srini/steadying and/or contact guard assistance as patient completes activity. Assistance may be provided throughout the activity or intermittently. 3-Partial/Moderate Assistance-helper does LESS THAN HALF the effort. [place] lifts, holds or supports trunk or limbs, but provides less than half the effort. 2-Substantial/Maximal Assistance-helper does MORE THAN HALF the effort. [place] lifts or holds trunk or limbs and provides more than half the effort. 2-Elizazwwt-xfrqtw does ALL the effort. Patient does none of the effort to complete the activity. Or, the assistance of 2 or more helpers is required for the patient to complete the activity. If activity was not attempted, code reason: 7-Patient Refused. 9-Not Applicable-not attempted and the patient did not perform the activity before the current illness, exacerbation or injury. 10-Not Attempted due to Environmental Limitations-(lack of equipment, weather restraints, etc.). 88-Not Attempted due to Medical Conditions or Safety Concerns. Other Treatment Pt oriented x0. Very [place] and unable to see? read? when presented with white board. Attempt at performing UE AROM exercises with goal to maintain/build strength needed for adls and transfers. Pt able to follow visual cues but requires tactile cues for correct speed, form, and technique. Pt is easily distracted and requires cues to continue through set (10 reps). Activity terminated early due to poor comprehension and attention to task. Pt pleasant but very confused. Education OT Patient Education: Correct positioning, Exercise program, Progress toward Goal/Update tx plan, Purpose of tx/functional activities, Safety issues Teaching Recipient: Patient Teaching Methods: Demonstration, Discussion Response to Teaching: Return Demonstration, Unable to Comprehend, Reinforcement Needed OT Child Attendant Goals Child Attendant Goals Time Frame: Mar 29, 2021 Eating (QC): 6 Oral Hygiene (QC): 4 Toileting Hygiene (QC): 4 Lower Body Dressing (QC): 4 On/Off Footwear (QC): 5 1=Demonstrate adherence to instructed precautions during ADL tasks. 2=Patient will verbalize/demonstrate understanding of assistive devices/modifications for ADL. 3=Patient will improve strength/tolerance for activity to enable patient to perform ADL's. OT Education/Plan Problem List/Assessment Assessment: Decreased Activ Tolerance, Decreased Safety Aware, Decreased UE Strength, Impaired Funct Balance, Impaired I ADL's, Impaired Self-Care Skills Discharge Recommendations Plan/Recommendations: Continue POC Treatment Plan/Plan of Care Treatment,Training & Education: Yes Patient would benefit from OT for education, treatment and training to promote independence in ADL's, mobility, safety and/or upper extremity function for ADL's. Plan of Care: ADL Retraining, Caregiver Training, Functional Mobility, UE Funct Exercise/Act Treatment Duration: Mar 29, 2021 Frequency: 5 times per week Estimated Hrs Per Day: .25 hour per day Rehab Potential: Fair Time/GCodes Start Time: 10:43 Stop Time: 10:55 Total Time Billed (hr/min): 12 Billed Treatment Time 1 visit EX Krystyna Phelps OT Mar 20, 2021 11:15
[2021-03-20] MEDS: polyethylene glycoL POWDER 17 GM (MIRALAX) PACK PO PRN (11:23)
[2021-03-20] MEDS: DOCUSATE SODIUM 100 MG (COLACE) CAP PO PRN (11:23)
[2021-03-20 12:00] VITALS: BP 143/93
--- NOTE | 2021-03-20 13:02 | Progress Note - Hospitalist ---
Subjective HPI/CC On Admission Date Seen by Provider: Mar 20, 2021 Time Seen by Provider: 13:00 Patient is an 89-year-old female who presented to the emergency department due to recurrent falls and weakness. She is unable to tell me all about her falls and is quite hard of hearing so history is somewhat limited. There is no family at bedside. Most history is obtained from the records. Her son reported to the ER that he found her lying on the floor and was unsure how long she had been down for. I then fell 2 more times, one on the way to the bathroom. They decid ed to bring her in at that point as she is normally able to ambulate with her walker. She denies any pain and is currently eating breakfast. Subjective/Events-last exam Pt reports feeling well today. Up in chair. No complaints. Focused Exam Lactate Level 03/18/21 23:38: Lactic Acid Level 2.41*H 03/19/21 05:52: Lactic Acid Level 0.72 Objective Exam Vital Signs Vital Signs Date Time Temp Pulse Resp B/P (MAP) Pulse Ox O2 Delivery O2 Flow Rate FiO2 03/20/21 12:00 36.9 101 18 143/93 (110) 98 Room Air Capillary Refill : Less Than 3 Seconds General Appearance: No Apparent Distress, Chronically ill, Thin Respiratory: Lungs Clear, No Respiratory Distress Cardiovascular: Regular Rate, Rhythm Gastrointestinal: Normal Bowel Sounds, Non Tender, Soft Neurologic/Psychiatric: Alert, Disoriented (knows name and location) Results/Procedures Lab Patient resulted labs reviewed. Imaging: Reviewed Imaging Report Assessment/Plan Assessment and Plan Assess & Plan/Chief Complaint UTI Continue IV abx Await cultures, previously has grown pansensitive e coli Currently growing e coli- no sensitivities back yet Falls Debility CT head negative PT/OT IRF eval- declined Family looking at [facility] for tomorrow DC HTN Appears to fill verapamil but BP well controlled, trend Diagnosis/Problems Diagnosis/Problems (1) UTI (urinary tract infection) Status: Acute Qualifiers: Urinary tract infection type: acute cystitis Hematuria presence: without hematuria Qualified Codes: N30.00 - Acute cystitis without hematuria (2) Debility Status: Acute RADHIKA SIEGEL MD Mar 20, 2021 13:02
--- NOTE | 2021-03-20 14:22 | Physical Therapy Daily Note ---
PT Daily Note-Current Subjective Patient very KOT[place]UE. Currently rates pain at 0/10, agreeable to treatment. Mental Status Attachments: Lujan Catheter, IV Transfers SCALE: Activities may be completed with or without assistive devices. 5-Enohsxwhlc-uroqijn completes the activity by him/herself with no assistance from a helper. 5-Set-up or Clean-up Assistance-helper sets up or cleans up; patient completes activity. [place] assists only prior to or following the activity. 4-Supervision or Touching Assistance-helper provides verbal cues and/or touching/steadying and/or contact guard assistance as patient completes activity. Assistance may be provided throughout the activity or intermittently. 3-Partial/Moderate Assistance-helper does LESS THAN HALF the effort. [place] lifts, holds or supports trunk or limbs, but provides less than half the effort. 2-Substantial/Maximal Assistance-helper does MORE THAN HALF the effort. [place] lifts or holds trunk or limbs and provides more than half the effort. 9-Zllsmjyka-xfcthd does ALL the effort. Patient does none of the effort to complete the activity. Or, the assistance of 2 or more helpers is required for the patient to complete the activity. If activity was not attempted, code reason: 7-Patient Refused. 9-Not Applicable-not attempted and the patient did not perform the activity before the current illness, exacerbation or injury. 10-Not Attempted due to Environmental Limitations-(lack of equipment, weather restraints, etc.). 88-Not Attempted due to Medical Conditions or Safety Concerns. Sit to Stand (QC): 4 Chair/Zbc-tc-Jsspd Xfer(QC): 4 Toilet Transfer (QC): 4 Gait Training Does the Patient Walk?: Yes Distance: 150 Walk 10 feet (QC): 4 Walk 50 ft with 2 Turns(QC): 4 Walk 150 ft (QC): 4 Gait Assistive Device: FWW Assessment Current Status: Fair Progress Patient sitting in chair upon PT arrival, agreeable to treatment. Patient performs all observed transfers with CGA and verbal cues. Difficult to communicate with patient due to severe [place]. Patient ambulates 150 feet with FWW, with CGA and verbal cues for safety, progression, posture and conservation of energy. Patient in chair post treatment with all needs met, nursing notif ied, call light in hand, all needs met, family in the room. PT Oyster Shipper Goals Oyster Shipper Goals PT Oyster Shipper Goals Time Frame: Apr 02, 2021 Roll Left & Right (QC): 5 Sit to Lying (QC): 5 Lying-Sitting on Side/Bed(QC): 5 Sit to Stand (QC): 5 Chair/Iah-lp-Awstv Xfer(QC): 5 Toilet Transfer (QC): 5 Does the Patient Walk: Yes Walk 10 feet (QC): 5 Walk 50ft with 2 Turns (QC): 5 Walk 150 ft (QC): 5 1 Step (curb) (QC): 4 4 Steps (QC): 4 12 Steps (QC): 4 PT Plan Treatment/Plan Treatment Plan: Continue Plan of Care Treatment Plan: Bed Mobility, Education, Functional Activity Be, Functional Strength, Group Therapy, Gait, Safety, Therapeutic Exercise, Transfers Treatment Duration: May 28, 2021 Frequency: 6 times per week Estimated Hrs Per Day: .5 hour per day Safety Risks/Education Patient Education: Gait Training Teaching Recipient: Patient, Family Teaching Methods: Demonstration, Discussion Response to Teaching: Verbalize Understanding, Return Demonstration Time/GCodes Time In: 1405 Time Out: 1420 Total Billed Treatment Time: 15 Total Billed Treatment Visit, SAMIRA Oseguera PT Mar 20, 2021 14:22
[2021-03-20 15:20] VITALS: BP 163/91
[2021-03-20 19:30] VITALS: BP 142/74
[2021-03-20] MEDS: cefTRIAXone 1,000 MG/SWFI 10 ML IV PUSH IV SCH ×2 (21:26)
[2021-03-20 23:30] VITALS: BP 167/84
[2021-03-21] MEDS: NS IV 1000 ML 1,000 ML IV SCH (01:57)
[2021-03-21 03:22] VITALS: BP 141/81
[2021-03-21 08:00] VITALS: BP_SYST 132; BP_SYST 197; BP_DIAS 71; BP_DIAS 94
--- NOTE | 2021-03-21 09:02 | Discharge Summary ---
Diagnosis/Chief Complaint Date of Admission Mar 19, 2021 at 01:58 Date of Discharge Discharge Date: Mar 20, 2021 Admission Diagnosis UTI Primary Care Samira Gimenez MD Discharge Diagnosis (1) UTI (urinary tract infection) Status: Acute (2) Debility Status: Acute Discharge Summary Discharge Physical Exam Allergies: Coded Allergies: No Known Drug Allergies (Unverified , 09/21/18) Vitals & I&Os Vital Signs Date Time Temp Pulse Resp B/P (MAP) Pulse Ox O2 Delivery O2 Flow Rate FiO2 03/21/21 08:00 36.9 76 18 132/71 (91) 96 Room Air General Appearance: No Apparent Distress, WD/WN Cardiovascular: Regular Rate, Rhythm, No Murmur Neurologic/Psychiatric: Alert, Oriented x3, Normal Mood/Affect Hospital Course Pt was admitted to the hospital due to debility and UTI. She was treated with IV abx and did well. She worked with PT/OT and family elected to discharge to assisted living facility in [facility]). She was discharged there in stable and improved condition after an uneventful hospital stay. Labs (last 24 hrs) Microbiology 03/18/21 Urine Culture - Preliminary, Resulted Escherichia coli Patient resulted labs reviewed. Imaging: Reviewed Imaging Report Discussion & Recommendations Discharge Planning: >30 minutes discharge planning Discharge Home Medications: Active Scripts Active Cephalexin 500 Mg Tablet 500 Mg PO BID Reported Verapamil HCl 360 Mg Cap24h.pel 360 Mg PO DAILY Instructions to patient/family Please see electronic discharge instructions given to patient. Copy Copies To 1: SAMIRA GIMENEZ MD Problem Qualifiers (1) UTI (urinary tract infection): Urinary tract infection type: acute cystitis Hematuria presence: without hematuria Qualified Codes: N30.00 - Acute cystitis without hematuria RADHIKA SIEGEL MD Mar 21, 2021 09:02
--- NOTE | 2021-03-21 09:39 | D/C HH Face to Face Order ---
D/C Face to Face Orders Instructions for Patient Via [facility], Patient Instructions/FollowUp: Please continue to take your medications as written. Please follow up with Dr Gimenez to follow up this hospital stay. Physician to follow Patient: Dr Gimenez Discharge Diet for Home: No Restrictions Patient Data-Allergies,Ht & Wt Patient Allergies: Coded Allergies: No Known Drug Allergies (Unverified , 09/21/18) Height (Feet): 5 Height (Inches): 3.00 Weight (Pounds): 150 Weight (Ounces): 0 Home Health Need/Face to Face Date of Face to Face: Mar 21, 2021 Clinical Findings: Generalized weakness and fatigue, Unsteady gait I have seen Pt [id number]: Yes Discharged To: Home Diagnosis/Conditions: UTI, debility Patient is Homebound due to: [place] fall risk due to instabilty Homebound Status Due to the above stated illness, injury or surgical procedure (medical condition or diagnosis) and associated clinical findings, the patient is homebound because of his/her inability to leave home except with aid of a supportive device and/or person AND leaving the home requires a considerable and taxing effort or is medically contraindicated. Pt req the following assistanc: Aid of another person, Walker Home Health Nursing Orders Home Health Services Order: Nursing Services, All Source Collection Manager-Evaluate & Treat, Physical Therapy-Evaluate & Treat Home Health Infusion Therapy Line Start Date: Mar 20, 2021 Therapy Orders Therapy Orders: Physical Therapy, PT to assess for OT Therapy Specific Orders: Eval assistive deivces, Teach enviro modifications/safety, Gait training Certify Stmt I certify that this patient is under my care and that I, a nurse practitioner or a physician; a shipping and receiving assistant working with me, had a face to face encounter that - meets the physician face to face encounter requirements with this patient as dated. RADHIKA SIEGEL MD Mar 21, 2021 09:39
[2021-03-21] MEDS ORDERED: CEPH500T PO (09:53)
[2021-03-21] MEDS: DOCUSATE SODIUM 100 MG (COLACE) CAP PO PRN (10:27)
[2021-03-21] MEDS: polyethylene glycoL POWDER 17 GM (MIRALAX) PACK PO PRN (10:27)
[2021-03-21 11:34] VITALS: BP 132/71
== END 2021-03-21 10:54 ==
LOC: EDUNIT# 23:25 → ER FS 23:29 → 4TH 23:30 → INTOOBSV 03-19 01:58 → UNDOADMOB 03-19 01:58 → UNDODISOB 03-21 11:35
PROVIDERS: ADMIT Internal Medicine; ATTEND Internal Medicine
DX: N39.0 Urinary tract infection, site not specified (principal); R53.81 Other malaise; I48.91 Unspecified atrial fibrillation; Z79.899 Other long term (current) drug therapy; Z90.89 Acquired absence of other organs
CPT/HCPCS: 36415; 51702; 70450; 71045; 80048; 80053; 81000; 83605 ×2; 84484; 85025; 85027; 86141; 87077; 87088; 87186; 96374; 97110; 97116 ×2; 97161; 97166; 97535; 99284; G0378